=== PATIENT | female | born 1975 | race Caucasian/White ===

== ENCOUNTER 2022-01-07 16:50 | Emergency (ER) | payer OTHER, SELFPAY ==
[2022-01-07] VITALS (10 sets, daily range): BP systolic 118–153; BP diastolic 67–93; PULSE 71–83; RESP 12–25; TEMP 36.4; O2SAT 96–100
--- NOTE | ~2022-01-07 | CT_ITS ---
EXAMINATION: CT brain wo con DATE: 01/07/2022 18:40 INDICATION: New SÁNCHEZ w/ vision changes . TECHNIQUE: Computed tomography (CT) of the head was performed without intravenous contrast. The mA wa s adjusted according to patient size. Iterative reconstruction technique was employed. The dose-lengt h product was 605.33 mGy-cm. COMPARISON: None FINDINGS: No acute intracranial hemorrhage or extra-axial fluid collection. No hydrocephalus, mass, or herniation. No acute ischemic infarct. Unremarkable dural venous sinus attenuation. No acute osseous abnormality. The aerated spaces are clear. IMPRESSION: No acute intracranial process. Reviewed, dictated and finalized at location K.
--- NOTE | 2022-01-07 18:27 | ED.GENADULT ---
HPI - General Adult General Chief complaint: Headache Stated complaint: syncopal? Time Seen by Provider: 01/07/22 17:12 History of Present Illness HPI narrative: This is a 46-year-old female with history of migraines presenting to ED with a chief complaint of headache and vision changes. Patient says that she is felt foggy all day. When she went to go get food she noticed that she was having trails in her vision. She was also becoming slightly confused. She did have a headache at this time that has since resolved. Now the patient just says that she feels slightly foggy. Patient has a history of migraines although she has not had 1 in several years. She denies numbness tingling weakness to any extremity. She denies any other complaints. Related Data Allergies Allergy/AdvReac Type Severity Reaction Status Date / Time No Known Allergies Allergy Verified 01/07/22 17:18 Review of Systems Review of Systems: CONSTITUTIONAL: Denies night sweats. EYES: No eye pain ENT: Denies rhinorrhea CARDIOVASCULAR: Denies palpitations RESPIRATORY: Denies hemoptysis GASTROINTESTINAL: Denies hematemesis GENITOURINARY: Denies hematuria. SKIN: Denies rash MUSCULOSKELETAL: Denies myalgia. NEUROLOGIC: Denies weakness. PSYCHIATRIC: Denies delusions Exam Narrative: APPEARANCE: No apparent distress. Head atraumatic. EYES: PERRLA/EOMI, NOSE: Normal no drainage NECK: Supple, Trachea midline RESPIRATORY: CTAB, No increased work of breathing. CARDIOVASCULAR: S1S2 appreciated ABDOMINAL: Soft, nontender, nondistended, MUSCULOSKELETAl: No obvious deformities NEURO: Alert. Moving 4/4 extremities SKIN:: Warm, dry. Normal color PSYCHIATRIC: Normal affect Course Vital Signs Vital signs: Vital Signs Temperature 97.6 F 01/07/22 17:14 Pulse Rate 75 01/07/22 17:14 Respiratory Rate 17 01/07/22 17:14 Blood Pressure 146/75 H 01/07/22 17:14 Pulse Oximetry 99 01/07/22 17:14 Temperature 97.6 F 01/07/22 17:14 Pulse Rate 76 01/07/22 18:43 Respiratory Rate 21 H 01/07/22 18:43 Blood Pressure 153/93 H 01/07/22 18:43 Pulse Oximetry 99 01/07/22 18:43 Medical Decision Making [facility] Narrative Medical decision making narrative: This is a 46-year-old female presenting to ED following a headache with some vision changes. Presentation is most consistent with a complicated migraine. Patient is also very concerned she may be having a heart attack. CT head was ordered. Lab work, EKG chest x-ray have been obtained. Patient has been treated for a migraine. CT head was negative. Initial lab work revealed a sodium of 166. I believe this to be a lab error. It was repeated and the repeat was 139. the rest of her lab work was within normal limits including a negative troponin. EKG interpretation: Rhythm [sinus], Rate 64, [place] -[normal], [place] -[normal], QRS [narrow], QTC [normal], T waves -[negative for concerning inversions], ST Segments - [Negative for concerning elevations] Final interpretations: [Normal Sinus Rhythm] Upon re-evaluation the patient is feeling better. She is no longer having changes in her vision. She is comfortable going home and following up with a neurologist on an outpatient basis. Vital Signs Vital Signs: Vital Signs Temperature 97.6 F 01/07/22 17:14 Pulse Rate 75 01/07/22 17:14 Respiratory Rate 17 01/07/22 17:14 Blood Pressure 146/75 H 01/07/22 17:14 Pulse Oximetry 99 01/07/22 17:14 Temperature 97.6 F 01/07/22 17:14 Pulse Rate 76 01/07/22 18:43 Respiratory Rate 21 H 01/07/22 18:43 Blood Pressure 153/93 H 01/07/22 18:43 Pulse Oximetry 99 01/07/22 18:43 Lab Data Result diagrams: 01/07/22 19:00 01/07/22 19:00 Labs: Lab Results 01/07/22 01/07/22 01/07/22 Range/Units 19:00 19:00 19:00 WBC 11.8 H (4.5-10.0) K/mm3 RBC 4.49 (4.2-5.4) M/mm3 Hgb 12.0 (12.0-15.0) g/dL Hct 37.0 (37.0-47.0) % [facility]
[2022-01-07] MEDS: diphenhydrAMINE HCl INJ 50 MG/ML VIAL 25 MG IV PUSH (18:52)
[2022-01-07] MEDS: PROCHLORPERAZINE EDISYLATE 10 MG/2 ML VIAL IV PUSH (18:53)
[2022-01-07] MEDS: SODIUM CHLORIDE 0.9% IV 1,000 ML 999 ML IV CONT (18:54)
[2022-01-07 19:05] LABS: Basophils Percent Auto 0.3 % (0.2-1.2); Eosinophils Absolute Auto 0.1 K/mm3 (0-0.3); Immature Granulocyte Absolute 0.04 K/mm3 (0.00-0.031); Immature Granulocyte Percent A 0.3 % (0-0.5); Lymphocytes Absolute Auto 2.23 K/mm3 (0.9-3.2); Lymphocytes Percent Auto 18.9 % (18.3-44.2); Mean Corpuscular HGB Conc 32.4 g/dl (32-36); Mean Corpuscular Hemoglobin 26.7 pg (26-34); Mean Corpuscular Volume 82.4 fl (80-100); Mean Platelet Volume 9.7 fl (7.4-10.4); Monocytes Absolute Auto 0.5 K/mm3 (0.1-0.6); Monocytes Percent Auto 4.6 % (2.6-8.5); Neutrophils Absolute Auto 8.9 K/mm3 (1.3-6.7); Neutrophils Percent Auto 74.9 % (45.5-73.1); Platelet Count Result 325 k/mm3 (150-375); Red Blood Count 4.49 M/mm3 (4.2-5.4); Red Cell Distribution Width 14.3 % (11.5-14.5); White Blood Count 11.8 K/mm3 (4.5-10.0)
[2022-01-07 19:25] LABS: Prothrombin Time 12.8 Seconds (11.1-14.7)
[2022-01-07 19:26] LABS: Partial Thromboplastin Time 32.6 SECONDS (22.3-36.8)
[2022-01-07 19:27] LABS: Anion Gap 40 mmol/L (8-16); Blood Urea Nitrogen 10 mg/dL (7-17); Calcium 9.1 mg/dL (8.4-10.2); Carbon Dioxide 21 mmol/L (22-30); Chloride 105 mmol/L (98-107); Estimated Glomerular Filt Rate > 60; Glucose 112 mg/dL (65-110); Magnesium 1.7 mg/dL (1.6-2.3); Potassium 4.3 mmol/L (3.4-5.0); Sodium 166 mmol/L (137-145)
[2022-01-07 19:44] LABS: Troponin I < 0.012 ng/mL (0.000-0.034)
[2022-01-07 19:56] LABS: Anion Gap 11 mmol/L (8-16); Blood Urea Nitrogen 10 mg/dL (7-17); Calcium 9.2 mg/dL (8.4-10.2); Carbon Dioxide 22 mmol/L (22-30); Chloride 106 mmol/L (98-107); Estimated Glomerular Filt Rate > 60; Glucose 106 mg/dL (65-110); Sodium 139 mmol/L (137-145)
--- NOTE | 2022-01-07 20:00 | ECG_ITS ---
Measurements Intervals [place] Rate: 64 P: 41 WV: 169 QRS: 15 QRSD: 102 T: 58 QT: 413 QTc: 427 Interpretive Statements SINUS RHYTHM NONSPECIFIC T-WAVE FLATTENING POOR R-WAVE PROGRESSION NO PREVIOUS ECG AVAILABLE FOR COMPARISON Electronically Signed On 01-08-2022 12:30:50 CDT by Sergio Carr M.D.
== END 2022-01-07 20:28 | disposition home or self-care (01) ==
PROVIDERS: Emergency Provider Emergency Medicine
DX: G43.909 Migraine, unspecified, not intractable, without status migrainosus (principal); R94.31 Abnormal electrocardiogram [ECG] [EKG]
CPT/HCPCS: 36415; 70450; 80048; 83735; 84484; 85025; 85610; 85730; 93005; 96365; 96375; 99284; J0131; J0780; J1200; J7030